=== PATIENT | male | born 1990 | race Asian ===

== ENCOUNTER 2017-01-20 22:08 | Emergency (ER) | payer OTHER ==
[2017-01-20] MEDS ORDERED: LET GEL TOPICAL 1 EA SYR TP ONE ×2 (22:22→22:23)
[2017-01-20 22:26] VITALS: RESP 18; TEMP 97.7
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
[2017-01-20 23:49] VITALS: BP 122/71; PULSE 100; O2SAT 99
== END 2017-01-20 23:35 | disposition home or self-care (01) ==
LOC: CED 22:08
DX: S40.211A Abrasion of right shoulder, initial encounter (principal); S60.410A Abrasion of right index finger, initial encounter; S60.412A Abrasion of right middle finger, initial encounter; F10.129 Alcohol abuse with intoxication, unspecified; V17.4XXA Pedal cycle driver injured in collision with fixed or stationary object in traffic accident, initial encounter; Y92.410 Unspecified street and highway as the place of occurrence of the external cause; Y99.8 Other external cause status; Y93.55 Activity, bike riding
CPT/HCPCS: 73030-PO; A4565